=== PATIENT | male | born 1945 | race Caucasian/White ===

== ENCOUNTER 2016-06-04 02:21 | Emergency (ER) | payer MEDICARE, BC ==
[~2016-06-04] VITALS: Ht 182.9 cm; Wt 98.8 kg
[~2016-06-04 02:21] MED LIST: AMOX500T PO; BACT800T5 PO; CADU10TA PO; HYDR-2768 PO; HYDR-3535 PO; PREG75 PO
[2016-06-04 02:30] VITALS: BP 181/84; PULSE 106; RESP 18; TEMP 98.4; O2SAT 96
[2016-06-04] MEDS ORDERED: LYRI75CA PO (02:58)
[2016-06-04] MEDS ORDERED: HYDR25TA5 PO (02:58)
[2016-06-04] MEDS ORDERED: AMLO1TAB84 PO (02:58)
[2016-06-04] MEDS ORDERED: HYDR-3535 PO (02:58)
--- NOTE | 2016-06-04 03:11 | PD ---
HPI Chief Complaint: OD/ Ingestion Time Seen by Provider: 02:55 Travel History International Travel<30 days: No Contact w/Intl Traveler<30days: No Traveled to known affect area: No History of Present Illness HPI The patient is a 71-year-old male who takes caduet 10/40 daily. He mistakenly took for 3-4 days the caduet 3 times a day. He denies any red or discolored urines but states he has felt his heart "racing". He denies any chest pain or syncopal or near syncopal spells. The patient states he has had ventricular dysrhythmias his entire life. He states he often goes into bigeminy. He is on a low-carb diet and does not take any fruits or fruit juices. PFSH Past Medical History High Cholesterol: Yes Diminished Hearing: No Gastrointestinal Disorders: Yes (COLONOSCOPY: 2016, POLYPECTOMY X2) Hypertension: Yes Musculoskeletal: Yes (OSTEOARTHRITIS, DDD, DJD) Immunizations Current: Yes Influenza Vaccination: Yes Past Surgical History Eye Surgery: Yes (RIGHT EYE REPAIR: TORN SCLERA) Tonsillectomy: Yes Other Surgery: Yes (left knee arthoscopic meniscotomy) Social History Alcohol Use: No Tobacco Use: No Substance Use: No Allergies-Medications (Allergen,Severity, Reaction): Coded Allergies: No Known Allergies (Verified , 06/04/16) Reported Meds & Prescriptions Reported Meds & Active Scripts Active Reported Lyrica (Pregabalin) 75 Mg Cap 75 Mg PO TID Lortab (Hydrocodone-Acetaminophen) 10-325 Mg Tab 1 Tab PO Q6H PRN Hydrochlorothiazide 25 Mg Tab 25 Mg PO DAILY Amlodipine-Atorvastatin 10-40 Mg Tab 1 Tab PO DAILY Review of Systems Except as stated in HPI: all other systems reviewed are Neg Physical Exam Narrative GENERAL: The patient is alert, oriented 3 in no apparent distress. His vital signs show pulse rate of 106 with blood pressure 181/84 but otherwise normal. Repeat vital signs reveal pulse rate of 94 with blood pressure 161/83 and are otherwise normal. SKIN: Warm and dry. No skin rash is present. HEAD: Atraumatic. Normocephalic. EYES: Pupils equal and round. No scleral icterus. No injection or drainage. ENT: No nasal bleeding or discharge. Mucous membranes pink and moist. NECK: Trachea midline. No JVD. CARDIOVASCULAR: Regular rate and rhythm. No murmur appreciated. RESPIRATORY: No accessory muscle use. Clear to auscultation. Breath sounds equal bilaterally. GASTROINTESTINAL: Abdomen soft, non-tender, nondistended. Hepatic and splenic margins not palpable. No guarding or rebound is present. MUSCULOSKELETAL: No obvious deformities. No clubbing. No cyanosis. No edema. NEUROLOGICAL: Awake and alert. No obvious cranial nerve deficits. Motor grossly within normal limits. Normal speech. PSYCHIATRIC: Appropriate mood and affect; insight and judgment normal. Data Data Last Documented VS Vital Signs Date Time Temp Pulse Resp B/P Pulse Ox O2 Delivery O2 Flow Rate FiO2 06/04/16 03:56 94 161/83 95 06/04/16 03:07 Room Air 06/04/16 02:30 98.4 18 Orders Electrocardiogram (06/04/16 03:07) Complete Blood Count With Diff (06/04/16 03:07) Comprehensive Metabolic Panel (06/04/16 03:07) Lipase (06/04/16 03:07) Urinalysis - C+S If Indicated (06/04/16 03:07) Troponin I (06/04/16 03:21) Potassium Chloride (Kcl) (06/04/16 04:00) Ns + Kcl 40 Meq Inj (Ns + Kcl 40 Meq Inj (06/04/16 04:00) Labs Laboratory Tests Test 06/04/16 06/04/16 03:21 03:29 White Blood Count 5.2 TH/MM3 Red Blood Count 5.26 MIL/MM3 Hemoglobin 14.1 GM/DL Hematocrit 43.3 % Mean Corpuscular Volume 82.1 FL Mean Corpuscular Hemoglobin 26.8 PG Mean Corpuscular Hemoglobin 32.7 % Concent Red Cell Distribution Width 14.5 % Platelet Count 267 TH/MM3 Mean Platelet Volume 7.0 FL Neutrophils (%) (Auto) 64.6 % Lymphocytes (%) (Auto) 23.0 % Monocytes (%) (Auto) 10.3 % Eosinophils (%) (Auto) 1.4 % Basophils (%) (Auto) 0.7 % Neutrophils # (Auto) 3.4 TH/MM3 Lymphocytes # (Auto) 1.2 TH/MM3 Monocytes # (Auto) 0.5 TH/MM3 Eosinophils # (Auto) 0.1 TH/MM3 Basophils # (Auto) 0.0 TH/MM3 CBC Comment DIFF FINAL Differential Comment Sodium Level 137 MEQ/L Potassium Level 2.8 MEQ/L Chloride Level 98 MEQ/L Carbon Dioxide Level 24.9 MEQ/L Anion Gap 14 MEQ/L Blood Urea Nitrogen 10 MG/DL Creatinine 1.00 MG/DL Estimat Glomerular Filtration 74 ML/MIN Rate Random Glucose 118 MG/DL Calcium Level 8.7 MG/DL Total Bilirubin 0.5 MG/DL Aspartate Amino Transf 23 U/L (AST/SGOT) Alanine Aminotransferase 36 U/L (ALT/SGPT) Alkaline Phosphatase 57 U/L Troponin I LESS THAN 0.02 NG/ML Total Protein 7.2 GM/DL Albumin 3.7 GM/DL Lipase 89 U/L Urine Color YELLOW Urine Turbidity CLEAR Urine pH 6.0 Urine Specific Kersey 1.018 Urine Protein NEG mg/dL Urine Glucose (UA) NEG mg/dL Urine Ketones 40 mg/dL Urine Occult Blood NEG Urine Nitrite NEG Urine Bilirubin NEG Urine Leukocyte Esterase NEG Urine RBC 0-2 /hpf Urine WBC 0-2 /hpf Urine Squamous Epithelial 0-5 /hpf Cells Urine Bacteria NONE /hpf Microscopic Urinalysis Comment CULT NOT INDICATED MDM Medical Decision Making Medical Screen Exam Complete: Yes Emergency Medical Condition: Yes Medical Record Reviewed: Yes Interpretation(s) The CBC is essentially normal. The EKG shows sinus arrhythmia with a rate of 84 and questionable old inferior infarct. No acute changes noted. The complete metabolic profile shows a GFR of 74, glucose 118 and potassium of 2.8. The lipase is normal and the troponin I is less than 0.02. The urinalysis is normal except for 40 ketones. Differential Diagnosis Medication side effect, electrolyte disorder, rhabdomyolysis, no effect from medication overdose Narrative Course The patient likely has no effect from his unintentional medication overdose. He does have a low potassium level and will be prescribed potassium supplement. He does take hydrochlorothiazide 25 mg once daily and this is likely the cause of his hyponatremia. He should follow-up with his primary care physician and is given the blood work that we did tonight. He is on a low-carb diet and does not take any fruits or fruit juices. He has not replacing his potassium and yet he has depleting his potassium by taking hydrochlorothiazide. Diagnosis Primary Impression: Accidental medication overdose Additional Impression: Hypokalemia Additional Instructions: As we discussed, you have been taking hydrochlorothiazide which depletes your body of potassium and you have not been replacing potassium by taking any fruits or fruit juices. Ad fruits/fruit juices to your diet. I gave you prescription for potassium supplement for about 10 days. I agree with your idea of getting off the low carb diet and eating a more balanced diet. Follow- up with her primary care physician next week. Take the laboratory results and EKG and urine results to his office. Med/Other Pt SpecificInfo: Prescription(s) given Scripts Potassium Chloride ER (K-Tab)20 Meq Tab20 Meq PO DAILY #10 TAB Ref 0 Prov:Ion Mcmanus MD 06/04/16 Disposition: 01 DISCHARGE HOME Condition: Stable Ion Mcmanus MD Jun 04, 2016 03:10
[2016-06-04 03:27] LABS: AUTOMATED NEUTROPHIL # 3.4 TH/MM3 (1.8-7.7); BASOPHIL % 0.7 % (0.0-2.0); EOSINOPHIL # 0.1 TH/MM3 (0-0.4); EOSINOPHIL % 1.4 % (0.0-4.0); HEMATOCRIT 43.3 % (39.0-51.0); HEMO FLAGS DIFF FINAL; LYMPHOCYTE # 1.2 TH/MM3 (1.0-4.8); MEAN CELL VOLUME 82.1 FL (80.0-100.0); MEAN CORPUSCULAR HEMOGLOBIN 26.8 PG (27.0-34.0); MEAN CORPUSCULAR HGB CONC 32.7 % (32.0-36.0); MONO % 10.3 % (0.0-8.0); NEUT % 64.6 % (16.0-70.0); PLATELET COUNT 267 TH/MM3 (150-450); RED BLOOD COUNT 5.26 MIL/MM3 (4.50-5.90); RED CELL DISTRIBUTION WIDTH 14.5 % (11.6-17.2); WHITE BLOOD COUNT 5.2 TH/MM3 (4.0-11.0)
[2016-06-04 03:36] LABS: BLOOD, URINE NEG (NEG); GLUCOSE,URINE NEG (NEG); KETONE, URINE 40 mg/dL (NEG); NITRITE,URINE NEG (NEG)
[2016-06-04 03:38] LABS: CHLORIDE 98 MEQ/L (98-107); SODIUM (NA) 137 MEQ/L (136-145)
[2016-06-04 03:40] LABS: ANION GAP 14 MEQ/L (5-15); BICARBONATE 24.9 MEQ/L (21.0-32.0); BLOOD UREA NITROGEN 10 MG/DL (7-18)
[2016-06-04 03:42] LABS: URINE COLOR YELLOW (YELLW/STRAW)
[2016-06-04 03:43] LABS: COMMENT (UR) CULT NOT INDICATED; CULTURE IF INDICATED CULT NOT INDICATED; RBC, URINE 0-2 /hpf (0-3); SQUAMOUS EPITHELIAL CELL URINE 0-5 /hpf (0-5); WBC, URINE 0-2 /hpf (0-5)
[2016-06-04 03:44] LABS: ALKALINE PHOSPHATASE 57 U/L (45-117); ALT (GPT) 36 U/L (12-78); AST (GOT) 23 U/L (15-37); GLOMERULAR FILTRATION RATE 74 ML/MIN (>89); TOTAL BILIRUBIN ADULT 0.5 MG/DL (0.2-1.0)
[2016-06-04 03:47] LABS: POTASSIUM 2.8 MEQ/L (3.5-5.1)
[2016-06-04 03:56] VITALS: BP 161/83; PULSE 94; O2SAT 95
[2016-06-04] MEDS ORDERED: NS + KCL 40 MEQ INJ 1,000 ML IV SCH (04:00)
[2016-06-04] MEDS ORDERED: POTASSIUM CHLORIDE 20 MEQ CONTROLLED RELEASE TAB PO ONE (04:00)
[2016-06-04] MEDS ORDERED: POTA1TAB4 PO (04:16)
--- NOTE | 2016-06-04 23:43 | EKG ---
Date Performed: 06/04/2016 Time Performed: 03:32:44 PTAGE: 71 years EKG: Sinus arrhythmia Possible inferior infarct - age undetermined Abnormal ECG NO PREVIOUS TRACING DOCTOR: Tono Springer Interpretating Date/Time 06/04/2016 23:42:14
== END 2016-06-04 04:44 | disposition home or self-care (01) ==
LOC: PHED 02:21
DX: T46.1X1A Poisoning by calcium-channel blockers, accidental (unintentional), initial encounter (principal); E87.6 Hypokalemia; Y92.89 Other specified places as the place of occurrence of the external cause
CPT/HCPCS: 80053; 81001; 83690; 84484; 85025; 93005; 96365; 99285; J3480